=== PATIENT | male | born 1995 | race Caucasian/White ===

== ENCOUNTER 2020-11-24 03:02 | Emergency (ER) | payer MEDICAID, SELFPAY ==
[2020-11-24 03:02] VITALS: BP 149/81; PULSE 94; PULSE 95; RESP 16; TEMP 36.2; O2SAT 91; O2SAT 95; BMI 28.5
--- NOTE | 2020-11-24 03:15 | EDS_ITS ---
HPI HPI - GI History of Present Illness Chief Complaint: Abd Pain Informant: patient Narrative Narrative: Patient presents with nausea, vomiting and abdominal pain. He has had this for 3 days. He states that every time he eats he vomits. It is worse when he is at work at night. 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 Denies any fevers. The pain is in the lower portion of the abdomen on both sides. It does not localize in the one area. He denies any history of abdominal surgeries. No dysuria or hematuria noted. He denies any diarrhea or constipation. He took nothing for symptoms at home. PFSH PFSH no medical history Home Medications fluoxetine 10 mg PO DAILY 09/11/16 [History Last Taken Unknown] omeprazole 40 mg PO DAILY 09/11/16 [History Last Taken Unknown] ondansetron HCl [Zofran] 4 mg PO 4X/DAY PRN PRN #10 tab 09/11/16 [Rx Last Taken Unknown] ondansetron 4 mg PO Q8H PRN PRN #10 tab 11/24/20 [Rx Last Taken Unknown] Allergy/AdvReac Type Severity Reaction Status Date / Time oseltamivir phosphate Allergy Other Verified 09/11/16 19:05 [From Tamiflu] no significant family history no surgical history Social History Smoking Status: Current every day smoker ROS ROS ED Constitutional Constitutional ED: Denies chills or fever(s) Eyes Eyes: Denies blurry vision, change in vision or diplopia ENT ENT ED: Denies ear pain, rhinorrhea or sore throat Cardiovascular Cardiovascular: Denies chest pain or palpitations Respiratory/Chest Respiratory/Chest: Denies cough, dyspnea or sputum Gastrointestinal Gastrointestinal: Reports abdominal pain, nausea and vomiting Genitourinary Genitourinary ED: Denies dysuria, hematuria or urinary frequency Musculoskeletal Musculoskeletal: Denies back pain or neck pain Integumentary Denies change in pigmentation or rash Neurologic Neurologic: Denies headache(s), numbness or weakness Psychiatric Psychiatric: Denies anxiety or depression Endocrine Endocrinology: Denies polydipsia or polyuria EXAM Physical Exam Const Vital Signs: 11/24/20 03:02 Temperature 97.1 F L Temperature Source Temporal Pulse Rate 94 Respiratory Rate 16 Blood Pressure 149/81 H Blood Pressure Mean 103 Pulse Ox 95 Oxygen Delivery Method Room Air Positive well nourished and well developed General Appearance ED: well developed and NAD HEENT Reports moist mucous membranes normocephalic and atraumatic; Negative for tenderness Eyes PERRL and EOMs intact bilaterally Neck supple and no JVD Chest Wall Chest: Negative for tenderness Resp normal respiratory effort and clear to auscultation bilaterally Effort and Inspection: Negative for respiratory distress Cardio regular rate, regular rhythm and no murmurs Rate: regular rate Rhythm: regular rhythm GI soft to palpation, non-tender and non-distended Palpation: soft Back/Spine no CVA tenderness and no thoracic nor lumbar tenderness Cervical Spine: Negative for cervical spine tenderness Extremity normal to inspection and full ROM General Extremety ED: Negative for tenderness Neuro oriented x3, CN's II-XII intact bilaterally and no sensory deficits noted Sensorium / Orientation: awake and alert Motor Exam: strength 5/5 throughout Psych mental status grossly normal Skin no rashes or lesions noted Rashes: no rashes MDM MDM MDM Narrative Medical decision making narrative: Patient was given Zofran and IV fluids. Laboratory studies show a white blood count 16.8. Creatinine is 1.2, total bilirubin was 1.3 which is unchanged. Lipase is normal. CAT scan of the abdomen pelvis shows no appendicitis. There is no evidence of bowel obstruction. Patient felt improved upon reevaluation. At this time I feel the patient can be discharged home with Zofran to take for nausea. I will give him a PCP to follow-up with as well. Lab Data Attestation: I reviewed the patient's lab results. Labs: Laboratory Results - last 24 hr 11/24/20 11/24/20 03:21 03:21 WBC 16.8 H RBC 5.23 Hgb 16.0 Hct 45.3 MCV 86.6 MCH 30.6 MCHC 35.3 RDW Std Deviation 39.0 RDW Coeff of Cornelius 12.3 Plt Count 306 MPV 10.9 Immature Gran % (Auto) 0.400 Neut % (Auto) 76.9 H Lymph % (Auto) 14.9 L [place] % (Auto) 5.7 Eos % (Auto) 1.6 Baso % (Auto) 0.5 Absolute Neuts (auto) 12.9 H Absolute Lymphs (auto) 2.50 Nucleated RBC % 0 Sodium 136 Potassium 3.4 L Chloride 101 Carbon Dioxide 19.0 L Anion Gap 16 H BUN 14 Creatinine 1.20 Estim Creat Clear Calc 101.97 Est GFR (MDRD) Af Amer 96 Est GFR (MDRD) Non-Af 80 BUN/Creatinine Ratio 11.7 Glucose 74 Calcium 9.4 Total Bilirubin 1.30 H AST 28 ALT 35 Alkaline Phosphatase 72 Total Protein 8.8 H Albumin 4.4 Globulin 4.4 H Albumin/Globulin Ratio 1.0 Lipase 57 L Radiography Diagnostic Testing: Radiology Impression Abdomen/Pelvis CT 11/24/20 03:44 IMPRESSION: Nonspecific bowel gas pattern without evidence of obstruction. No appendicitis. No visualized renal ureteral or bladder calculi. No hydronephrosis. Electronically Signed: Lucia Cohen MD at 4:07 EDT Tel , Service support , Discharge Plan Triage Chief Complaint: Abd Pain ED Provider: Rehan Krishna Dx/Rx/DC Orders Clinical Impression: Nausea & vomiting Instructions: ED Vomiting (Adult) Prescriptions: New ondansetron [ondansetron] 4 MG tablet 4 mg PO Q8H PRN PRN (Reason: Nausea) Qty: 10 RF: 0 No Action omeprazole 40 MG capsule,delayed release(DR/EC) 40 mg PO DAILY RF: 0 fluoxetine 10 MG capsule 10 mg PO DAILY RF: 0 ondansetron HCl [Zofran] 4 MG tablet 4 mg PO 4X/DAY PRN PRN (Reason: Nausea) Qty: 10 RF: 0 Primary Care Provider: Care Physician,No Primary Referrals: Almita Leyva MD [STAFF PHYSICIAN] - Care Physician,No Primary [Primary Care Provider] - Disposition Disposition: Home, self care
[2020-11-24] MEDS: 0.9% Normal Saline 1,000 ML 1000 ML IV (03:26)
[2020-11-24 03:41] LABS: Absolute Neutrophil Count 12.9 X10^3/uL (2.0-7.7); Basophil# 0.08 X10^3/uL; Basophil% 0.5 % (0-1); Eosinophil# 0.26 X10^3/uL; Eosinophils% 1.6 % (0-5); Hematocrit 45.3 % (40-54); Lymphocyte % 14.9 % (19-41); Mean Corp Hgb Conc 35.3 g/dL (32-36); Mean Corpuscular Hgb 30.6 pg (27.0-32.0); Mean Corpuscular Volume 86.6 fL (80-94); Mean Platelet Vol. 10.9 fl (6.2-12.0); Monocyte# 0.95 X10^3/uL; Monocyte% 5.7 % (0-10); NRBC Flagged by Analyzer 0 % (0-5); Neutrophil # 12.91 X10^3/uL (2.7-7.7); Neutrophil % 76.9 % (47-70); Platelet Count 306 K/mm3 (150-450); RBC Distribution Width CV 12.3 % (11.6-14.6); Red Blood Count 5.23 M/mm3 (4.6-6.2); White Blood Count 16.8 K/mm3 (4.4-11.0)
--- NOTE | 2020-11-24 03:44 | CT_ITS ---
STUDY: CT ABDOMEN AND PELVIS WITHOUT CONTRAST REASON FOR EXAM: Male, 25 years old. Abd pain RADIATION DOSAGE (If Supplied By Facility): CTDIvol = ( 9.58 ) mGy, DLP = ( 495.36 ) mGycm TECHNIQUE: Transaxial images were obtained from the dome of the diaphragm to the symphysis pubis without oral contrast, and without intravenous contrast. Sagittal and coronal images were reconstructed. Individualized dose optimization techniques were used for this CT. COMPARISON: None. FINDINGS: The visualized lung bases are unremarkable. The visualized portions of the heart are within normal limits. Normal liver. Normal gallbladder and extrahepatic biliary system. Normal spleen. Normal pancreas. Normal bilateral adrenal glands. Normal right kidney. Normal left kidney. Normal visualized stomach. Normal small intestine. Normal colon. The appendix is visualized and appears normal. Normal abdominal aorta. Normal inferior vena cava. There is a 3 small nonspecific subcentimeter retroperitoneal lymph nodes. There is a least one phlebolith in the left side of the pelvis. Normal urinary bladder. Normal visualized prostate gland. There is a small umbilical hernia containing fat. Normal osseous structures. CT/Abdomen/Pelvis without Cont IMPRESSION: Nonspecific bowel gas pattern without evidence of obstruction. No appendicitis. No visualized renal ureteral or bladder calculi. No hydronephrosis. Electronically Signed: Lucia Cohen MD at 4:07 EDT Tel , Service support ,
[2020-11-24 03:55] LABS: AST(SGOT) 28 U/L (15-37); Alanine Aminotransfer ALT/SGPT 35 U/L (16-61); Albumin, Serum 4.4 g/dL (3.2-5.0); Alkaline Phosphatase 72 U/L (45-117); Anion Gap 16 (5-15); BUN 14 mg/dL (7-18); BUN/Creat Ratio 11.7 RATIO (10-20); Calcium,Total 9.4 mg/dL (8.5-10.1); Chloride 101 mmol/L (98-107); EST Glomerular Filtration Rate 80 mL/min (>60); Est Glom Filt Rate - Afr Amer 96 mL/min (>60); Estimated Creatinine Clearance 101.97 ml/min; Globulin 4.4 g/dL (2.2-4.2); Glucose 74 mg/dL (74-106); Lipase 57 U/L (73-393); Potassium 3.4 mmol/L (3.5-5.1); Protein, Total 8.8 g/dL (6.4-8.2); Sodium Level 136 mmol/L (136-145)
== END 2020-11-24 04:35 | disposition home or self-care (01) ==
PROVIDERS: Emergency Provider Emergency Medicine
DX: R10.31 Right lower quadrant pain (principal); R10.32 Left lower quadrant pain; R11.2 Nausea with vomiting, unspecified; R42 Dizziness and giddiness; F17.200 Nicotine dependence, unspecified, uncomplicated; Z79.899 Other long term (current) drug therapy
CPT/HCPCS: 74176; 80053; 83690; 85025; 96360; 99282; J7030

== ENCOUNTER 2021-07-11 12:52 | Emergency (ER) | payer MEDICAID, SELFPAY ==
[2021-07-11 12:53] VITALS: BP 129/89; PULSE 103; RESP 18; TEMP 36.1; O2SAT 97; BMI 25.7
--- NOTE | 2021-07-11 14:06 | CM.ED ---
SW Note Referral Source: Case Find Referral Reason: No Primary Care Physician (PCP) SW reviewed chart and noted that patient has no PCP. SW provided patient with list of [facility] and [facility] Physician List for reference.=. No other issues or concerns voiced at this time. SW remains available for any additional needs. Plan: Provided patient with PCP information Tamiko COOK
--- NOTE | 2021-07-11 14:19 | ED.VIS.GI ---
HPI HPI - GI History of Present Illness Chief Complaint: Nausea/Vomiting/Diarrhea Informant: patient Abdominal Pain/Flank Pain Onset: Yesterday Context: Gradual Onset Timing: Continuous Quality: Aching Location: RUQ Worsened by: Nothing Relieved by: Nothing Nausea/Vomiting/Emesis GI Symptom: Positive for Nausea and Vomiting Onset: Today Quality: Negative for Blood streaks, Coffee ground and Hematemesis Diarrhea/Melena/Hematochezia GI Symptom: Positive for Diarrhea; Negative for Melena and Hematochezia Onset: Yesterday Stool Quality: Negative for Black, Maroon and BRB per rectum Associated Symptoms Associated Symptoms: Negative for Dysuria, Frequency and Hematuria Narrative Narrative: Patient presents with abdominal pain, nausea, vomiting, and diarrhea that began yesterday. Patient states his pain is more of an aching sensation in his right upper quadrant and epigastric area. Patient states nothing makes it better nothing makes it worse. Patient states it came on gradually. Patient admits to some nausea and vomiting today. Patient denies any hematemesis or coffee-ground emesis. Patient admits to some diarrhea that began yesterday. Patient states it is loose. Patient denies any melena or hematochezia. Patient denies any urinary complaints. PFSH PFSH Medical History no medical history no medical history Home Medications fluoxetine 10 mg PO DAILY 09/11/16 [History Last Taken Unknown] omeprazole 40 mg PO DAILY 09/11/16 [History Last Taken Unknown] ondansetron HCl [Zofran] 4 mg PO 4X/DAY PRN PRN #10 tab 09/11/16 [Rx Last Taken Unknown] ondansetron 4 mg PO Q8H PRN PRN #10 tab 11/24/20 [Rx Last Taken Unknown] Allergy/AdvReac Type Severity Reaction Status Date / Time oseltamivir phosphate Allergy Other Verified 07/11/21 12:53 [From Tamiflu] Surgical History no surgical history no surgical history Social History Smoking Status: Current every day smoker tobacco type: cigarettes ROS ROS ED Constitutional Constitutional ED: Denies chills or fever(s) Eyes Eyes: Denies blurry vision or change in vision ENT ENT ED: Reports rhinorrhea; Denies sore throat Cardiovascular Cardiovascular: Reports racing heartbeat; Denies chest pain Respiratory/Chest Respiratory/Chest: Reports cough and dyspnea Gastrointestinal Gastrointestinal: Reports abdominal pain, diarrhea, nausea and vomiting Genitourinary Genitourinary ED: Denies dysuria or hematuria Musculoskeletal Musculoskeletal: Denies back pain or neck pain Integumentary Denies abscess or rash Neurologic Neurologic: Reports headache(s); Denies weakness Allergic/Immunologic Allergic/Immunologic ED: Denies mouth swelling or urticaria EXAM Physical Exam Const Vital Signs: 07/11/21 12:53 Temperature 96.9 F L Temperature Source Temporal Pulse Rate 103 H Respiratory Rate 18 Blood Pressure 129/89 H Blood Pressure Mean 102 Pulse Ox 97 Oxygen Delivery Method Room Air Positive well nourished and well developed General Appearance ED: well developed HEENT Reports moist mucous membranes Neck supple and no JVD Resp normal respiratory effort and clear to auscultation bilaterally Cardio regular rate, regular rhythm and no murmurs GI normal to inspection, nondistended, normoactive bowel sounds Palpation: soft and tender epigastric and RUQ; Negative for guarding or rebound tenderness present Extremity normal to inspection General Extremety ED: Negative for edema or tenderness General Extremity: Negative for edema Neuro oriented x3, CN's II-XII intact bilaterally and no sensory deficits noted Sensorium / Orientation: alert Motor Exam: strength 5/5 throughout Psych mental status grossly normal Skin no rashes or lesions noted MDM MDM MDM Narrative Medical decision making narrative: Patient was given IV fluids and Zofran here. CBC shows hemoglobin of 17.0. It was otherwise within normal limits. Comprehensive metabolic profile was within normal limits. Urinalysis does not show any evidence of urinary tract infection. Patient is feeling better on reevaluation. Patient was instructed to drink plenty of fluids. Patient was instructed take Tylenol or ibuprofen as needed for pain. Patient was instructed to follow-up with his primary care physician in 5 to 7 days. Patient understands and is agreeable with the plan. All questions were answered. Lab Data Attestation: I reviewed the patient's lab results. Labs: Laboratory Results - last 24 hr 07/11/21 07/11/21 07/11/21 14:15 14:15 15:30 WBC 9.7 RBC 5.63 Hgb 17.0 H Hct 49.4 MCV 87.7 MCH 30.2 MCHC 34.4 RDW Std Deviation 41.7 RDW Coeff of Cornelius 12.9 Plt Count 280 MPV 10.4 Immature Gran % (Auto) 0.400 Neut % (Auto) 74.9 H Lymph % (Auto) 13.7 L [place] % (Auto) 6.8 Eos % (Auto) 3.8 Baso % (Auto) 0.4 Absolute Neuts (auto) 7.3 Absolute Lymphs (auto) 1.33 Nucleated RBC % 0 Sodium 137 Potassium 4.3 Chloride 105 Carbon Dioxide 23.0 Anion Gap 9 BUN 10 Creatinine 0.92 Estim Creat Clear Calc 133.00 Est GFR (MDRD) Af Amer 131 Est GFR (MDRD) Non-Af 108 BUN/Creatinine Ratio 10.9 Glucose 88 Calcium 8.9 Total Bilirubin 1.10 H AST 16 ALT 30 Alkaline Phosphatase 73 Total Protein 8.4 H Albumin 4.0 Globulin 4.4 H Albumin/Globulin Ratio 0.9 Lipase 82 Urine Color Yellow Urine Clarity Clear Urine pH 6.0 Ur Specific [place] 1.010 Urine Protein Negative Urine Glucose (UA) Normal Urine Ketones 15 H Urine Occult Blood Negative Urine Nitrite Negative Urine Bilirubin Negative Urine Urobilinogen Normal Ur Leukocyte Esterase Negative Urine RBC 0 SEEN Urine WBC 0 SEEN Ur Squamous Epith Cells 0 SEEN Urine Bacteria 0 SEEN Urine Mucus 0 SEEN Discharge Plan Triage Chief Complaint: Nausea/Vomiting/Diarrhea ED Provider: Jere Sandoval Dx/Rx/DC Orders Clinical Impression: Viral illness Instructions: ED Viral Syndrome (Adult) Prescriptions: No Action omeprazole 40 MG capsule,delayed release(DR/EC) 40 mg PO DAILY RF: 0 fluoxetine 10 MG capsule 10 mg PO DAILY RF: 0 ondansetron HCl [Zofran] 4 MG tablet 4 mg PO 4X/DAY PRN PRN (Reason: Nausea) Qty: 10 RF: 0 ondansetron [ondansetron] 4 MG tablet 4 mg PO Q8H PRN PRN (Reason: Nausea) Qty: 10 RF: 0 Primary Care Provider: Care Physician,No Primary Referrals: Criss Sexton MD [STAFF PHYSICIAN] - 3-5 Days Care Physician,No Primary [Primary Care Provider] - Disposition Disposition: Home, Self Care
[2021-07-11] MEDS: Ondansetron 4 MG/2 ML Vial IV (14:21)
[2021-07-11 14:27] LABS: Absolute Lymphocyte Count 1.33 X10^3/uL (0.83-4.51); Absolute Neutrophil Count 7.3 X10^3/uL (2.0-7.7); Basophil# 0.04 X10^3/uL; Basophil% 0.4 % (0-1); Eosinophil# 0.37 X10^3/uL; Eosinophils% 3.8 % (0-5); Hematocrit 49.4 % (40-54); Lymphocyte # 1.33 X10^3/ul (0.83-4.51); Lymphocyte % 13.7 % (19-41); Mean Corp Hgb Conc 34.4 g/dL (32-36); Mean Corpuscular Hgb 30.2 pg (27.0-32.0); Mean Corpuscular Volume 87.7 fL (80-94); Mean Platelet Vol. 10.4 fl (6.2-12.0); Monocyte# 0.66 X10^3/uL; Monocyte% 6.8 % (0-10); NRBC Flagged by Analyzer 0 % (0-5); Neutrophil # 7.25 X10^3/uL (2.7-7.7); Neutrophil % 74.9 % (47-70); Platelet Count 280 K/mm3 (150-450); RBC Distribution Width CV 12.9 % (11.6-14.6); RBC Distribution Width SD 41.7 fl (35.1-43.9); Red Blood Count 5.63 M/mm3 (4.6-6.2); White Blood Count 9.7 K/mm3 (4.4-11.0)
[2021-07-11 14:40] LABS: ALB/GLOB Ratio 0.9 RATIO (0.9-2.4); AST(SGOT) 16 U/L (15-37); Alanine Aminotransfer ALT/SGPT 30 U/L (16-61); Alkaline Phosphatase 73 U/L (45-117); Anion Gap 9 (5-15); BUN 10 mg/dL (7-18); BUN/Creat Ratio 10.9 RATIO (10-20); Calcium,Total 8.9 mg/dL (8.5-10.1); Chloride 105 mmol/L (98-107); Creatinine, Serum 0.92 mg/dL (0.70-1.30); EST Glomerular Filtration Rate 108 mL/min (>60); Est Glom Filt Rate - Afr Amer 131 mL/min (>60); Globulin 4.4 g/dL (2.2-4.2); Glucose 88 mg/dL (74-106); Lipase 82 U/L (73-393); Potassium 4.3 mmol/L (3.5-5.1); Protein, Total 8.4 g/dL (6.4-8.2); Sodium Level 137 mmol/L (136-145)
[2021-07-11 15:41] LABS: Bacteria 0 SEEN /hpf (None Seen); Mucous, Urine 0 SEEN /hpf (<or=2+); Red Blood Cells-Urine 0 SEEN /hpf (0-5); Squamous Epithelial Cells - UA 0 SEEN /hpf (0-5); White Blood Cells 0 SEEN /hpf (0-5)
[2021-07-11 16:01] LABS: Color, Urine Yellow (Yellow); Glucose, Dipstick Normal (Normal); Ketone-Dipstick 15 mg/dl (Negative); Leukocyte Esterase-Dipstick Negative /ul (Negative); Nitrite-Dipstick Negative (Negative); Occult Blood-Urine Negative /ul (Negative); Protein-Dipstick Negative (Negative); Urine Bilirubin Dipstick Negative (Negative); Urine Clarity Clear (Clear); Urine Urobilinogen Normal (Normal)
[2021-07-11 16:48] VITALS: BP 126/80; PULSE 80; RESP 18; O2SAT 98
== END 2021-07-11 16:55 | disposition home or self-care (01) ==
PROVIDERS: Emergency Provider Emergency Medicine
DX: B34.9 Viral infection, unspecified (principal); R11.2 Nausea with vomiting, unspecified; R19.7 Diarrhea, unspecified; R10.11 Right upper quadrant pain; F17.210 Nicotine dependence, cigarettes, uncomplicated; Z79.899 Other long term (current) drug therapy
CPT/HCPCS: 80053; 81001; 83690; 85025; 87426; 96374; 99282; A4216; J2405

== ENCOUNTER 2022-07-01 08:21 | Emergency (ER) | payer MEDICAID, SELFPAY ==
[2022-07-01 08:22] VITALS: BP 133/77; PULSE 109; RESP 16; TEMP 36.6; O2SAT 99; BMI 20.6
[2022-07-01 08:24] VITALS: BP 138/85; PULSE 112; RESP 16; TEMP 37; O2SAT 100
[2022-07-01 08:31] VITALS: BP 120/70; PULSE 91; RESP 16; TEMP 36.8; O2SAT 100
--- NOTE | 2022-07-01 08:31 | EX.ED.VIS.UR ---
HPI HPI - URI History of Present Illness Chief Complaint: Sore Throat Informant: patient Onset/Context/Timing Onset: Days Context: Gradual Onset Timing: Continuous Current Severity: Mild Maximum Severity: Mild Associated Symptoms Associated Symptoms: Negative for Nasal Congestion, Headache, Sinus Pressure, Myalgias, Nausea, Vomiting, Diarrhea, Shortness of Breath, Chest Pain, Nonproductive cough, Hemoptysis or Productive Cough Narrative Narrative: 26-year-old male with 3-day history of sore throat able to swallow. No fever or chills. No nausea or vomiting or cough. Sore throats been going on since Saturday. Prior similar symptoms: Yes Recent Illness/Hospitalization: No ROS ROS ED ROS Narrative Sore throat. Review of Systems ROS Unobtainable: Denies due to encephalopathy Constitutional Constitutional ED: Denies chills or fever(s) Eyes Eyes: Denies blurry vision ENT ENT ED: Reports sore throat; Denies ear pain or rhinorrhea Cardiovascular Cardiovascular: Denies chest pain Respiratory/Chest Respiratory/Chest: Denies cough or dyspnea Gastrointestinal Gastrointestinal: Denies abdominal pain, constipation, diarrhea, melena, nausea or vomiting Genitourinary Genitourinary ED: Denies dysuria or hematuria Musculoskeletal Musculoskeletal: Denies arthralgias Integumentary Denies abscess Neurologic Neurologic: Denies headache(s) Psychiatric Psychiatric: Denies anxiety Endocrine Endocrinology: Denies cold intolerance Hematologic/Lymphatic Hematologic/Lymphatic: Denies easy bleeding Allergic/Immunologic Allergic/Immunologic ED: Denies mouth swelling or tongue swelling PFSH PFSH Medical History no medical history no medical history Home Medications amoxicillin 500 mg capsule 500 mg PO TID 10 days #30 caps 07/01/22 [Rx Last Taken Unknown] Allergy/AdvReac Type Severity Reaction Status Date / Time oseltamivir phosphate Allergy Other Verified 07/01/22 08:23 [From Tamiflu] Surgical History no surgical history Social History Smoking Status: Current every day smoker tobacco type: cigarettes EXAM Physical Exam Narrative Exam Narrative: 25-year-old male no acute distress. Vital signs stable afebrile. EENT exam posterior pharynx enlarged red tonsils. Minimal exudate. No abscess. Able to swallow. No drooling or stridor. Tonsils are not touching. They do appear to be infected. TMs normal bilaterally. Moist mucous membranes. Neck nontender no lymphadenopathy. Trachea midline. Nontender. Lungs clear. Heart regular rhythm rate about 110 no murmur. Abdomen soft nontender. Otherwise exam unremarkable. Patient does not look septic or toxic. Does not look dehydrated. Const Vital Signs: 07/01/22 08:22 07/01/22 08:24 Temperature 97.9 F 98.6 F Temperature Source Temporal Temporal Pulse Rate 109 H 112 H Respiratory Rate 16 16 Blood Pressure 133/77 H 138/85 H Blood Pressure Mean 95 102 Pulse Ox 99 100 Oxygen Delivery Method Room Air Room Air Positive well nourished and well developed; Negative for obese, cachectic or contractures General Appearance ED: well developed and NAD; Negative for cachectic, contractures, cyanotic, diaphoretic or pallor Nutritional Appearance: Negative for cachectic or obese HEENT Reports moist mucous membranes; Denies dry mucous membranes HEENT Narrative: Enlarged tonsils bilaterally. Erythematous. Minimal exudate. No peritonsillar abscess. No stridor or drooling. Able to swallow without any difficulty. Tonsils not touching. normocephalic and atraumatic; Negative for scalp tenderness Face and Sinus: Negative for sinus tenderness Mouth ED: No dry mucous membranes Mouth: No dry mucous membranes Throat: tonsils abnormal and posterior oropharynx abnormal; Negative for posterior oropharynx normal Eyes PERRL and EOMs intact bilaterally General Eye ED: Negative for pale conjunctiva or scleral icterus Neck no lymphadenopathy, supple, no meningeal signs and no JVD General: Negative for anterior neck swelling or lymphadenopathy Resp normal respiratory effort and clear to auscultation bilaterally Effort and Inspection: Negative for retractions Auscultation: Negative for rales, rhonchi or wheezes Cardio S1 normal heart sound, S2 normal heart sound and no murmurs Rate: tachycardic Rhythm: regular rhythm; Negative for abnormal rhythm GI non-tender, non-distended and no masses Inspection: Negative for abdominal distention Auscultation: normoactive bowel sounds Palpation: soft; Negative for tender or guarding Back/Spine no CVA tenderness and normal ROM General Back: Negative for CVA tenderness Cervical Spine: Negative for cervical spine tenderness Thoracic Spine / Upper Back: Negative for thoracic spinal tenderness Lumbar Spine / Lower Back: Negative for lumbar spinal tenderness Sacrum: Negative for tenderness Extremity normal to inspection and full ROM General Extremety ED: Negative for cyanosis or tenderness General Extremity: Negative for cyanosis Neuro oriented x3, CN's II-XII intact bilaterally and no sensory deficits noted Sensorium / Orientation: alert, oriented to person, oriented to place and oriented to time; Negative for orientation impaired, lethargic or stuporous Motor Exam: strength 5/5 throughout Psych mental status grossly normal Appearance: Negative for other Attitude: No agitated Mood & Affect: Negative for depressed or anxious Skin General Skin Exam: Negative for jaundice or pallor Lesions: no lesions Rashes: no rashes Trauma: Negative for abrasion or laceration MDM MDM MDM Narrative Medical decision making narrative: 25-year-old male appears to have strep throat. Treated with amoxicillin 3 times daily for 1 week. Tylenol and Motrin for pain. Warm salt water gargling. Chloraseptic spray. He has sore throats that need to be treated with antibiotics yearly. He will be referred to ENT. Discharge Plan Triage Chief Complaint: Sore Throat ED Provider: Anam Méndez Dx/Rx/DC Orders Clinical Impression: Strep throat Instructions: Strep Throat Prescriptions: New amoxicillin 500 mg capsule 500 mg PO TID 10 Days Qty: 30 0RF Primary Care Provider: Care Physician,No Primary Referrals: hSamir Cruz MD [Med Staff - Active Staff] - As soon as possible Care Physician,No Primary [Primary Care Provider] - Activity Restrictions/Additional Instructions: Clinically this looks like strep throat. He will be placed on antibiotic amoxicillin 3 times a day for 10 days. Warm salt water gargling. Chloraseptic spray. Tylenol and Motrin for pain. Plenty of fluids and rest. If you want to be evaluated for possible tonsillectomy follow-up with the ear nose and throat doctors across the street Dr. Nick Morelos and Dr. Hal Humphreys. Disposition Disposition: Home, Self Care
[2022-07-01] MEDS: AMOXICILLIN 500 MG CAPSULE PO (08:47)
== END 2022-07-01 08:50 | disposition home or self-care (01) ==
LOC: ED 08:43
PROVIDERS: Emergency Provider Emergency Medicine; Visit Provider Emergency Medicine
DX: J02.0 Streptococcal pharyngitis (principal); F17.210 Nicotine dependence, cigarettes, uncomplicated
CPT/HCPCS: 99283

== ENCOUNTER → 2025-04-19 | Outpatient (CLI) | payer OTHER, SELFPAY ==
--- OUTSIDE RECORDS SUMMARY | 2025-01-29 08:53 | XMS RPT_ITS ---
Author Name Auto Generated Organization [facility] Care Team Providers Care Emergency Veterinarian Name Role Phone STENTZ, CHARLOTTE Primary Care Unavailable STENTZ, CHARL[place]TE Attending Unavailable STENTZ, [place] Referring Unavailable STENTZ, [place] Primary Care Unavailable STENTZ, [place] Attending Unavailable STENTZ, [place] Referring Unavailable STENTZ, [place] Primary Care Unavailable STENTZ, [place] Attending Unavailable STENTZ, [place] Referring Unavailable STENTZ, [place] Primary Care Unavailable PROBLEMS DATE TYPE CONDITION / CODE ATTENDING STATUS [facility] 03/20/2024 Admitting Diagnosis Cyst of epididymis / N50.3(ICD-10) [facility] 01/29/2025 Admitting Diagnosis Sebaceous cyst / L72.3(ICD-10) [facility] 11/15/2024 Admitting Diagnosis Injury of conjunctiva and corneal abrasion without foreign body, right eye, initial encounter / S05.01XA(ICD-10) [facility] 10/16/2023 Admitting Diagnosis Depression, unspecified / F32.A(ICD-10) [facility] 03/20/2024 Admitting Diagnosis Generalized anxiety disorder / F41.1(ICD-10) [facility] PROCEDURES No Procedure Records Found RESULTS ALLERGIES DATE TYPE / CODE NAME / CODE REACTION SEVERITY SOURCE 05/28/2011 DRUG INGREDI/[id number](S NOMED CT) OSELTAMIVIR Other [facility] ENCOUNTERS ADMIT/DISCHARGE ACCOUNT NUMBER ADMITTING ENCOUNTER CLASS LOCATION SOURCE 01/29/2025/ 5 [id number] Ambulatory Building:[address] Ambulatory 11/15/2024/ 5 [id number] Emergency Building:[facility] EDRoom: [id number] : [address] 10/19/2024/ 5 [id number] Ambulatory Building:[address] 07/20/2024/ 4 [id number] Ambulatory Building:[facility] [address] Ambulatory PAYERS ENCOUNTER GUARANTOR PAYER SUBSCRIBER SOURCE 01/29/2025 CHARMAINE FROSTB: [address] [address]Ywa: (HP) Primary Insurance:[facility] Number: [id number] ve Date:2024-11-19 CHARMAINE FROSTB: [id number] [address] [address]Ybn: (HP) [facility]
--- NOTE | 2025-04-19 17:55 | CT_ITS ---
PROCEDURE: BRAIN/HEAD W/WO CONTRAST 04/19/2025 REASON FOR EXAM: Clinical concern for forehead mass. TECHNIQUE: Procedure Code: [id number] Modality: CT Procedure: BRAIN/HEAD W/WO CONTRAST Coronal and Sagittal reconstruction series were provided. CONTRAST: Isovue 370 VOLUME: 49 mL One or more dose reduction techniques were used (e.g., Automated exposure control, adjustment of the mA and/or kV according to patient size, use of iterative reconstruction technique). RADIATION DOSE SUMMARY: DLP: 1614.72 MGycm COMPARISON: None available. FINDINGS: No acute hemorrhage. No acute infarct. There is no evidence of intracranial enhancing mass or intracranial rim- enhancing collection on CT. No significant mass effect or brain herniation. The ventricular system and sulci/fissures are within normal limits of size and configuration for the patient's stated age. No extra-axial fluid collection. The basal cisterns are patent. The mastoid air cells are clear. Polypoid mucosal thickening in the maxillary sinuses. Scattered paranasal mucosal thickening. The calvarium appears intact. CT/Brain/Head W/WO Contrast IMPRESSION: No acute intracranial hemorrhage, infarct, significant mass effect, or enhancin g mass. Paranasal sinus disease. Reading Location: [facility]
== END | disposition home or self-care (01) ==
LOC: CT 17:52
PROVIDERS: PCP Physician Assistant; Referring Provider Surgery Plastic and Reconstructive Surgery; Visit Provider Surgery Plastic and Reconstructive Surgery
DX: L98.9 Disorder of the skin and subcutaneous tissue, unspecified (principal)
CPT/HCPCS: 70470; Q9967